=== PATIENT | male | born 1975 | race Caucasian/White ===

== ENCOUNTER 2019-12-18 16:56 | Observation (INO) ==
[2019-12-18 17:39] LABS: Basophils % 0.7 %; Eosinophils % 0.7 %; Hematocrit 36.5 % (37.5-50.1); Hemoglobin 12.7 g/dL (12.9-16.9); Immature Granulocytes % 0.2 % (0-4); Lymphocytes % 24.1 %; Mean Corpuscular HGB Conc 34.8 g/dL (31.6-35.5); Mean Corpuscular Hemoglobin 30.5 pg (28.0-33.3); Mean Corpuscular Volume 87.5 fL (83.0-100.0); Mean Platelet Volume 10.7 fL (9.4-12.4); Monocytes # 0.4 K/mcL (0.0-1.3); Monocytes % 9.8 %; Neutrophils # 2.6 K/mcL (1.6-8.9); Platelet Count 184 K/mcL (140-400); Red Blood Count 4.17 M/mcL (4.19-5.50); Red Cell Distribution Width 12.2 % (11.5-14.5); Segmented Neutrophils % 64.5 %; White Blood Count 4.1 K/mcL (4.3-11.1)
[2019-12-18] MEDS ORDERED: levoFLOXacin 750 MG/150 ML 750 MG/150 ML BAG IVPB ONE (17:44)
[2019-12-18] MEDS ORDERED: *HR* FentaNYL (PF) 100 MCG/2 ML VIAL IVP ONE (17:49)
[2019-12-18] MEDS ORDERED: Isovue-370 500 ML BOTTLE IVP ONE ×2 (17:57→18:33)
[2019-12-18 17:58] LABS: Large Platelets Present (Not Present); Reactive Lymphocytes Present (Not Present)
[2019-12-18 18:02] LABS: Alanine Aminotransferase 132 Units/L (7-52); Albumin 3.7 g/dL (3.5-5.7); Albumin/Globulin Ratio 1.2 (1.1-2.2); Alkaline Phosphatase 137 Units/L (34-104); Aspartate Amino Transferase 100 Units/L (13-39); BUN/Creatinine Ratio 14 (6-26); Blood Urea Nitrogen 14 mg/dL (6-20); Calcium 8.7 mg/dL (8.6-10.3); Carbon Dioxide 22 mEq/L (23-29); Chloride 99 mEq/L (98-107); Globulin 3.1 g/dL (2.4-3.5); Glucose 210 mg/dL (70-105); Lipase 38 Units/L (11-82); Osmolality,Calculated 279 (280-300); Potassium 3.8 mEq/L (3.5-5.1); Sodium 131 mEq/L (136-145); Total Protein 6.8 g/dL (6.4-8.9); Troponin I < 0.03 ng/mL (< 0.04); eGFR For African Americans > 60 (> 60); eGFR For Non-African Americans > 60 (> 60)
[2019-12-18] MEDS: 0.9 % Sodium Chloride 1,000 ML IVC SCH (18:07)
[2019-12-18 18:37] LABS: Magnesium 1.8 mg/dL (1.6-2.6); Phosphorous 2.5 mg/dL (2.7-4.5)
[2019-12-18] MEDS ORDERED: MetroNIDAZOLE 500 MG/100 ML 500 MG/100 ML BAG IVPB ONE (19:58)
[2019-12-18 21:04] LABS: Acetaminophen < 10 mcg/mL (10-20)
[2019-12-18 21:04] LABS: Bacteria,Urine Few per hpf (None-Few); Bilirubin,Urine Negative (Negative); Blood,Urine Negative (Negative); Calcium Oxalate Crystals,Urine Present; Clarity,Urine Clear (Clear); Color,Urine Yellow (Yellow); Glucose,Urine (UA) 50 mg/dL (Normal); Ketones,Urine Negative (Negative); Leukocyte Esterase,Urine Negative (Negative); Mucus,Urine Few per lpf (None-Few); Nitrite,Urine Negative (Negative); Protein,Urine Trace mg/dL (Neg-Trace); RBC,Urine 0-3 per hpf (0-3); Specific Gravity,Urine > 1.030 (1.010-1.025); Urobilinogen,Urine >=8.0 mg/dL (Normal); WBC,Urine 0-3 per hpf (0-3)
[2019-12-18] MEDS ORDERED: 0.9 % Sodium Chloride 500 ML IVC ONE (21:42)
[2019-12-18] MEDS ORDERED: 0.9 % Sodium Chloride 1,000 ML IVC ONE (21:42)
[2019-12-18 22:55] LABS: Hepatitis B Surface Antigen Nonreactive (Nonreactive)
[2019-12-18] MEDS ORDERED: Naloxone 0.4 MG/ML INJ IVP PRN (23:18)
[2019-12-18] MEDS ORDERED: Ondansetron 4 MG/2 ML VIAL IVP PRN (23:18)
[2019-12-18 23:23] LABS: Hepatitis C Virus Antibody Nonreactive (Nonreactive)
[2019-12-18 23:24] LABS: Hepatitis B Core IgM Nonreactive (Nonreactive)
[2019-12-18 23:25] LABS: Hepatitis A Antibody IgM Nonreactive (Nonreactive)
[2019-12-18] MEDS ORDERED: *HR* Dextrose 50 % in Water (Vial) 50 ML VIAL IVP PRN (23:46)
[2019-12-18] MEDS ORDERED: Dextrose Gel 15 GM/37.5 ML TUBE PO PRN ×2 (23:46)
[2019-12-18] MEDS ORDERED: D5% in Water 1,000 ML IVC PRN (23:46)
[2019-12-19] MEDS: Ringers Solution, Lactated 1,000 ML IVC SCH ×2 (00:38→12:20)
[2019-12-19] MEDS: *HR* HYDROmorphone (PF) 1 MG/ML SYRINGE IVP PRN ×5 (00:38→10:59)
[2019-12-19] MEDS: Insulin LISPRO 300 UNITS/3 ML VIAL SQ SCH ×5 (00:41→23:47)
[2019-12-19] MEDS ORDERED: Benzonatate 100 MG CAPSULE PO PRN (00:43)
[2019-12-19] MEDS: *HR* Heparin 5,000 UNIT/ML VIAL SQ SCH ×2 (04:55→18:20)
[2019-12-19 08:42] LABS: Hematocrit 31.7 % (37.5-50.1); Mean Corpuscular HGB Conc 34.7 g/dL (31.6-35.5); Mean Corpuscular Hemoglobin 30.6 pg (28.0-33.3); Mean Corpuscular Volume 88.1 fL (83.0-100.0); Mean Platelet Volume 10.6 fL (9.4-12.4); Monocytes # 0.4 K/mcL (0.0-1.3); Platelet Count 162 K/mcL (140-400); Red Cell Distribution Width 12.3 % (11.5-14.5); White Blood Count 3.5 K/mcL (4.3-11.1)
[2019-12-19] MEDS: MetroNIDAZOLE 500 MG/100 ML 500 MG/100 ML BAG IVPB SCH ×3 (09:00→23:48)
[2019-12-19 09:01] LABS: Albumin 3.1 g/dL (3.5-5.7); Albumin/Globulin Ratio 1.1 (1.1-2.2); Bilirubin,Direct 0.8 mg/dL (0.0-0.2); Bilirubin,Indirect 0.8 mg/dL (0.0-1.0); Bilirubin,Total 1.6 mg/dL (0.3-1.0); Globulin 2.7 g/dL (2.4-3.5); Total Protein 5.8 g/dL (6.4-8.9)
[2019-12-19 09:02] LABS: BUN/Creatinine Ratio 12 (6-26); Blood Urea Nitrogen 10 mg/dL (6-20); Carbon Dioxide 22 mEq/L (23-29); Chloride 104 mEq/L (98-107); Glucose 135 mg/dL (70-105); Magnesium 1.6 mg/dL (1.6-2.6); Osmolality,Calculated 279 (280-300); Potassium 3.6 mEq/L (3.5-5.1); Sodium 134 mEq/L (136-145); eGFR For African Americans > 60 (> 60); eGFR For Non-African Americans > 60 (> 60)
[2019-12-19 12:39] LABS: Basophils # 0.1 K/mcL (0.0-0.2); Lymphocytes # 0.9 K/mcL (0.6-4.6); Neutrophils # 2.1 K/mcL (1.6-8.9)
[2019-12-19 12:40] LABS: Platelet Estimate Normal (Normal); Reactive Lymphocytes Present (Not Present)
[2019-12-19 12:42] LABS: Toxic Granulation Present (Not Present)
[2019-12-19] MEDS ORDERED: Ketorolac 30 MG/ML VIAL IVP ONE (16:42)
[2019-12-19] MEDS ORDERED: Prochlorperazine 10 MG/2 ML VIAL IVP ONE (16:42)
[2019-12-19 16:49] LABS: % Iron Saturation 13 % (20-55); Iron 36 mcg/dL (65-175); Transferrin 197 mg/dL (203-362)
[2019-12-19] MEDS: 0.9 % Sodium Chloride 1,000 ML IVC SCH (19:43)
[2019-12-19] MEDS: Pregabalin 75 MG CAPSULE PO SCH (20:54)
[2019-12-20] MEDS: Insulin LISPRO 300 UNITS/3 ML VIAL SQ SCH (05:26)
[2019-12-20 07:40] VITALS: BP 120/82
[2019-12-20] MEDS: *HR* Heparin 5,000 UNIT/ML VIAL SQ SCH (08:33)
[2019-12-20] MEDS: Pregabalin 75 MG CAPSULE PO SCH (08:33)
[2019-12-20] MEDS ORDERED: lisinopriL 10 MG TABLET PO SCH (09:00)
[2019-12-20 09:48] LABS: Basophils % 0.6 %; Hemoglobin 11.2 g/dL (12.9-16.9); Immature Granulocytes % 0.3 % (0-4); Lymphocytes # 0.8 K/mcL (0.6-4.6); Mean Corpuscular HGB Conc 33.9 g/dL (31.6-35.5); Mean Corpuscular Hemoglobin 30.9 pg (28.0-33.3); Mean Corpuscular Volume 90.9 fL (83.0-100.0); Mean Platelet Volume 10.7 fL (9.4-12.4); Monocytes # 0.4 K/mcL (0.0-1.3); Monocytes % 12.2 %; Neutrophils # 1.9 K/mcL (1.6-8.9); Platelet Count 164 K/mcL (140-400); Red Blood Count 3.63 M/mcL (4.19-5.50); Red Cell Distribution Width 12.4 % (11.5-14.5); Segmented Neutrophils % 59.9 %; White Blood Count 3.1 K/mcL (4.3-11.1)
[2019-12-20 10:01] LABS: Alanine Aminotransferase 88 Units/L (7-52); Albumin 3.1 g/dL (3.5-5.7); Albumin/Globulin Ratio 1.1 (1.1-2.2); Alkaline Phosphatase 114 Units/L (34-104); Aspartate Amino Transferase 79 Units/L (13-39); BUN/Creatinine Ratio 13 (6-26); Bilirubin,Total 1.7 mg/dL (0.3-1.0); Blood Urea Nitrogen 11 mg/dL (6-20); Calcium 8.2 mg/dL (8.6-10.3); Carbon Dioxide 23 mEq/L (23-29); Chloride 107 mEq/L (98-107); Globulin 2.7 g/dL (2.4-3.5); Glucose 248 mg/dL (70-105); Osmolality,Calculated 294 (280-300); Potassium 3.8 mEq/L (3.5-5.1); Sodium 138 mEq/L (136-145); Total Protein 5.8 g/dL (6.4-8.9); eGFR For African Americans > 60 (> 60); eGFR For Non-African Americans > 60 (> 60)
[2019-12-20 10:08] LABS: Platelet Estimate Normal (Normal); Reactive Lymphocytes Present (Not Present)
[2019-12-21 10:13] LABS: AFP Tumor Marker Non-Pregnant 2 ng/mL (0-9)
[2019-12-22 10:37] LABS: F-Actin (sm muscle) Ab IgG 9 Units (0-19)
[2019-12-22 10:42] LABS: ANA IgG by ELISA NONE DETECTED (None Detected)
== END 2019-12-20 10:30 | disposition home or self-care (01) ==
LOC: EMEROOARM 16:56 → 3ANU 16:56
PROVIDERS: ADMIT Student in an Organized Health Care Education/Training Program; ATTEND Student in an Organized Health Care Education/Training Program

== ENCOUNTER 2020-03-06 12:23 | Inpatient (IN) ==
[2020-03-06] MEDS ORDERED: 0.9 % Sodium Chloride 1,000 ML IVC ONE (13:07)
[2020-03-06] MEDS ORDERED: Isovue-370 500 ML BOTTLE IVP ONE (13:25)
[2020-03-06 13:38] LABS: Basophils % 0.4 %; Eosinophils % 0.7 %; Hematocrit 39.6 % (37.5-50.1); Hemoglobin 13.1 g/dL (12.9-16.9); Immature Granulocytes % 1.1 % (0-4); Lymphocytes # 0.3 K/mcL (0.6-4.6); Lymphocytes % 11.2 %; Mean Corpuscular HGB Conc 33.1 g/dL (31.6-35.5); Mean Corpuscular Hemoglobin 27.8 pg (28.0-33.3); Mean Corpuscular Volume 84.1 fL (83.0-100.0); Monocytes # 0.1 K/mcL (0.0-1.3); Neutrophils # 2.3 K/mcL (1.6-8.9); Platelet Count 128 K/mcL (140-400); Red Blood Count 4.71 M/mcL (4.19-5.50); Red Cell Distribution Width 14.6 % (11.5-14.5); Segmented Neutrophils % 82.6 %; White Blood Count 2.8 K/mcL (4.3-11.1)
[2020-03-06 13:59] LABS: BUN/Creatinine Ratio 18 (6-26); Blood Urea Nitrogen 16 mg/dL (6-20); Calcium 8.6 mg/dL (8.6-10.3); Carbon Dioxide 22 mEq/L (23-29); Chloride 96 mEq/L (98-107); Glucose 119 mg/dL (70-105); Osmolality,Calculated 268 (280-300); Potassium 4.3 mEq/L (3.5-5.1); Sodium 128 mEq/L (136-145); Troponin I < 0.03 ng/mL (< 0.04); eGFR For African Americans > 60 (> 60); eGFR For Non-African Americans > 60 (> 60)
[2020-03-06] MEDS ORDERED: D5 IVPB STA (15:23)
[2020-03-06] MEDS ORDERED: AMPHOTERICIN B LIPID COMPLEX IVPB STA (15:23)
[2020-03-06] MEDS ORDERED: WATER IVPB STA (15:23)
[2020-03-06] MEDS ORDERED: D5 IVPB ONE ×2 (15:30→19:00)
[2020-03-06] MEDS ORDERED: WATER IVPB ONE ×2 (15:30→19:00)
[2020-03-06 15:38] LABS: Alanine Aminotransferase 32 Units/L (7-52); Albumin 3.2 g/dL (3.5-5.7); Albumin/Globulin Ratio 1.1 (1.1-2.2); Alkaline Phosphatase 91 Units/L (34-104); Aspartate Amino Transferase 35 Units/L (13-39); Bilirubin,Direct 0.2 mg/dL (0.0-0.2); Bilirubin,Indirect 1.2 mg/dL (0.0-1.0); Bilirubin,Total 1.4 mg/dL (0.3-1.0); Globulin 2.9 g/dL (2.4-3.5); Total Protein 6.1 g/dL (6.4-8.9)
[2020-03-06] MEDS ORDERED: WATER ONE (15:45)
[2020-03-06] MEDS ORDERED: D5 ONE (15:45)
[2020-03-06] MEDS ORDERED: Naloxone 0.4 MG/ML INJ IVP PRN (16:10)
[2020-03-06] MEDS ORDERED: Acetaminophen 325 MG TABLET PO PRN (16:10)
[2020-03-06] MEDS ORDERED: *HR* OxyCODONE Immed Rel 5 MG TABLET PO PRN (16:10)
[2020-03-06] MEDS ORDERED: D5% in Water 500 ML IVPB SCH (16:15)
[2020-03-06] MEDS ORDERED: D5% in Water 1,000 ML IVC PRN (16:16)
[2020-03-06] MEDS ORDERED: *HR* Dextrose 50 % in Water (Vial) 50 ML VIAL IVP PRN (16:16)
[2020-03-06] MEDS ORDERED: Dextrose Gel 15 GM/37.5 ML TUBE PO PRN ×2 (16:16)
[2020-03-06] MEDS ORDERED: Albuterol 2.5 MG/3 ML NEBULIZER IH PRN (16:20)
[2020-03-06 17:26] LABS: Estimated Average Glucose 214 mg/dl; Hemoglobin A1C 9.1 %
[2020-03-06 17:37] LABS: Hepatitis B Surface Antigen Nonreactive (Nonreactive)
[2020-03-06 18:06] LABS: Hepatitis B Core IgM Nonreactive (Nonreactive); Hepatitis C Virus Antibody Nonreactive (Nonreactive)
[2020-03-06 18:08] LABS: Hepatitis A Antibody IgM Nonreactive (Nonreactive)
[2020-03-06] MEDS: Ipratropium/Albuterol Neb 3 ML IH SCH ×3 (18:09→23:53)
[2020-03-06] MEDS ORDERED: Ondansetron 4 MG/2 ML VIAL IVP PRN (18:25)
[2020-03-06] MEDS: Insulin LISPRO 300 UNITS/3 ML VIAL SUBQ SCH (18:36)
[2020-03-06] MEDS: *HR* Heparin 5,000 UNIT/ML VIAL SQ SCH (18:52)
[2020-03-06] MEDS: Pantoprazole 40 MG VIAL IVP SCH (18:53)
[2020-03-06] MEDS ORDERED: Insulin LISPRO 300 UNITS/3 ML VIAL SUBQ SCH (21:00)
[2020-03-06] MEDS ORDERED: predniSONE 20 MG TABLET PO SCH (21:00)
[2020-03-06] MEDS: Levalbuterol Neb 1.25 MG/3 ML IH SCH (22:06)
[2020-03-06 22:13] LABS: Alanine Aminotransferase 25 Units/L (7-52); Albumin 2.7 g/dL (3.5-5.7); Albumin/Globulin Ratio 1.1 (1.1-2.2); Alkaline Phosphatase 70 Units/L (34-104); Aspartate Amino Transferase 32 Units/L (13-39); BUN/Creatinine Ratio 21 (6-26); Bilirubin,Total 1.5 mg/dL (0.3-1.0); Blood Urea Nitrogen 16 mg/dL (6-20); Carbon Dioxide 21 mEq/L (23-29); Chloride 97 mEq/L (98-107); Globulin 2.5 g/dL (2.4-3.5); Glucose 129 mg/dL (70-105); Osmolality,Calculated 267 (280-300); Potassium 3.9 mEq/L (3.5-5.1); Sodium 127 mEq/L (136-145); Total Protein 5.2 g/dL (6.4-8.9); eGFR For African Americans > 60 (> 60); eGFR For Non-African Americans > 60 (> 60)
[2020-03-06 22:18] LABS: ABG Base Excess -1 mEq/L (-2 to 3); ABG HCO3 22 mEq/L (21-27); ABG Oxygen Saturation 95 % (95-98); ABG PCO2 29 mmHg (35-45); ABG PH 7.48 pH Units (7.32-7.45); ABG PO2 67 mmHg (85-104); ABG TCO2 22 mEq/L (20-26)
[2020-03-06] MEDS: MethylPREDNISolone 40 MG/ML VIAL IVP SCH (22:20)
[2020-03-06] MEDS ORDERED: Albumin Human 5% 12.5 GM/250 ML IV.SOLN IVPB ONE (23:15)
[2020-03-06] MEDS: D5 IVPB SCH (23:59)
[2020-03-06] MEDS: SULFAMETHOXAZOLE IVPB SCH (23:59)
[2020-03-06] MEDS: WATER IVPB SCH (23:59)
[2020-03-06] MEDS: TRIMETH IVPB SCH (23:59)
[2020-03-07] MEDS: Levalbuterol Neb 1.25 MG/3 ML IH SCH ×3 (04:12→16:39)
[2020-03-07] MEDS: Ipratropium/Albuterol Neb 3 ML IH SCH ×2 (04:14→07:43)
[2020-03-07] MEDS: *HR* Heparin 5,000 UNIT/ML VIAL SQ SCH (05:32)
[2020-03-07] MEDS: MethylPREDNISolone 40 MG/ML VIAL IVP SCH ×2 (05:32→15:43)
[2020-03-07] MEDS: Pantoprazole 40 MG VIAL IVP SCH (05:32)
[2020-03-07] MEDS ORDERED: Amphotericin B Lipid Complex 400 MG in D5% in Water 250 ML IVPB SCH (09:00)
[2020-03-07] MEDS: Insulin LISPRO 300 UNITS/3 ML VIAL SUBQ SCH ×3 (09:32→15:44)
[2020-03-07] MEDS: TRIMETH IVPB SCH ×2 (09:33→16:07)
[2020-03-07] MEDS: SULFAMETHOXAZOLE IVPB SCH ×2 (09:33→16:07)
[2020-03-07] MEDS: D5 IVPB SCH ×2 (09:33→16:07)
[2020-03-07] MEDS: WATER IVPB SCH ×2 (09:33→16:07)
[2020-03-07] MEDS: Cefepime HCl 2,000 MG in Water for inj. (sterile) 20 ML IVP SCH ×2 (09:34→15:43)
[2020-03-07] MEDS ORDERED: Insulin DETEMIR 100 UNIT/ML X5UNITS SUBQ SCH ×2 (10:15→21:00)
[2020-03-07] MEDS ORDERED: Insulin LISPRO 300 UNITS/3 ML VIAL SUBQ SCH (10:16)
[2020-03-07 14:12] VITALS: BP 105/70
[2020-03-07] MEDS ORDERED: Ipratropium Neb 0.5 MG NEBULIZER IH SCH (16:00)
[2020-03-07] MEDS ORDERED: WATER IVPB SCH ×3 (16:45→19:58)
[2020-03-07] MEDS ORDERED: D5 IVPB SCH ×3 (16:45→19:58)
[2020-03-07] MEDS ORDERED: AMPHOTERICIN B LIPID COMPLEX IVPB SCH (17:00)
[2020-03-07 20:46] LABS: HIV-1&2 Antibody & p24 Ag Nonreactive (Nonreactive)
== END 2020-03-07 17:40 | disposition short-term general hospital (02) | DRG 867 ==
LOC: EMEROOARM 12:23 → 2NNU 16:35 → ICNU 23:50
PROVIDERS: ADMIT Student in an Organized Health Care Education/Training Program; ATTEND Student in an Organized Health Care Education/Training Program

== ENCOUNTER 2021-01-29 15:56 | Observation (INO) ==
[2021-01-29] MEDS: 0.9 % Sodium Chloride 1,000 ML IVC SCH ×2 (16:21→17:22)
[2021-01-29 16:41] LABS: Amphetamine Screen,Urine Negative ng/mL (Cutoff=1000); Barbiturate Screen,Urine Negative ng/mL (Cutoff=200); Benzodiazepines Screen,Urine Negative ng/mL (Cutoff=200); Cannabinoid Screen,Urine Negative ng/mL (Cutoff = 50); Cocaine Screen,Urine Negative ng/mL (Cutoff= 300); Opiate Screen,Urine Negative ng/mL (Cutoff=300); Phencyclidine Screen,Urine Negative ng/mL (Cutoff=25)
[2021-01-29 16:43] LABS: Basophils % 0.2 %; Bilirubin,Urine Negative (Negative); Blood,Urine Negative (Negative); Clarity,Urine Clear (Clear); Color,Urine Colorless (Yellow); Eosinophils # 0.1 K/mcL (0.0-0.6); Eosinophils % 0.6 %; Glucose,Urine (UA) >=1000 mg/dL (Normal); Hematocrit 48.8 % (37.5-50.1); Hemoglobin 17.7 g/dL (12.9-16.9); Immature Granulocytes % 0.8 % (0-4); Ketones,Urine Negative (Negative); Leukocyte Esterase,Urine Negative (Negative); Lymphocytes # 1.1 K/mcL (0.6-4.6); Lymphocytes % 5.8 %; Mean Corpuscular HGB Conc 36.3 g/dL (31.6-35.5); Mean Corpuscular Hemoglobin 30.7 pg (28.0-33.3); Mean Corpuscular Volume 84.7 fL (83.0-100.0); Mean Platelet Volume 10.4 fL (9.4-12.4); Monocytes # 1.4 K/mcL (0.0-1.3); Monocytes % 7.5 %; Neutrophils # 16.2 K/mcL (1.6-8.9); Nitrite,Urine Negative (Negative); Platelet Count 395 K/mcL (140-400); Protein,Urine Trace mg/dL (Neg-Trace); Red Blood Count 5.76 M/mcL (4.19-5.50); Red Cell Distribution Width 12.8 % (11.5-14.5); Segmented Neutrophils % 85.1 %; Specific Gravity,Urine > 1.030 (1.010-1.025); Squamous Epithelial Cell,Urine Few per hpf (None-Few); Uric Acid Crystals,Urine Present per hpf; Urobilinogen,Urine Normal (Normal); WBC,Urine 0-3 per hpf (0-3)
[2021-01-29 16:47] LABS: Alanine Aminotransferase 27 Units/L (7-52); Albumin 4.1 g/dL (3.5-5.7); Albumin/Globulin Ratio 1.5 (1.1-2.2); Alkaline Phosphatase 304 Units/L (34-104); Aspartate Amino Transferase 14 Units/L (13-39); BUN/Creatinine Ratio 18 (6-26); Bilirubin,Total 0.8 mg/dL (0.3-1.0); Blood Urea Nitrogen 26 mg/dL (6-20); Calcium 9.3 mg/dL (8.6-10.3); Carbon Dioxide 19 mEq/L (23-29); Chloride 99 mEq/L (98-107); Globulin 2.7 g/dL (2.4-3.5); Glucose 460 mg/dL (70-105); Osmolality,Calculated 293 (280-300); Potassium 4.6 mEq/L (3.5-5.1); Sodium 129 mEq/L (136-145); Total Protein 6.8 g/dL (6.4-8.9); eGFR For African Americans > 60 (> 60); eGFR For Non-African Americans 52 (> 60)
[2021-01-29] MEDS ORDERED: Insulin Human Regular 10 UNIT in 0.9 % Sodium Chloride 10 ML IV ONE (17:41)
[2021-01-29] MEDS ORDERED: Ondansetron 4 MG/2 ML VIAL IVP PRN (21:28)
[2021-01-29] MEDS ORDERED: Acetaminophen 325 MG TABLET PO PRN (21:28)
[2021-01-29] MEDS ORDERED: Naloxone 0.4 MG/ML INJ IVP PRN (21:28)
[2021-01-29] MEDS ORDERED: 0.9 % Sodium Chloride 1,000 ML IVC SCH (21:30)
[2021-01-29] MEDS ORDERED: Dextrose Gel 15 GM/37.5 ML TUBE PO PRN ×2 (21:36)
[2021-01-29] MEDS ORDERED: D5% in Water 1,000 ML IVC PRN (21:36)
[2021-01-29] MEDS ORDERED: *HR* Dextrose 50 % in Water (Syg) 50 ML SYRINGE IVP PRN (21:36)
[2021-01-29] MEDS ORDERED: Insulin DETEMIR 100 UNIT/ML X5UNITS SUBQ SCH (21:45)
[2021-01-30] MEDS: Insulin LISPRO 300 UNITS/3 ML VIAL SUBQ SCH ×3 (00:40→08:21)
[2021-01-30] MEDS ORDERED: Pregabalin 75 MG CAPSULE PO PRN (00:41)
[2021-01-30] MEDS ORDERED: lisinopriL 10 MG TABLET PO SCH (00:45)
[2021-01-30] MEDS ORDERED: Hydrocortisone Lotion 59 ML BOTTLE TP PRN (00:47)
[2021-01-30 02:46] LABS: Estimated Average Glucose 186 mg/dl; Hemoglobin A1C 8.1 %
[2021-01-30 03:16] LABS: Hematocrit 44.7 % (37.5-50.1); Mean Corpuscular HGB Conc 35.8 g/dL (31.6-35.5); Mean Corpuscular Hemoglobin 30.8 pg (28.0-33.3); Mean Corpuscular Volume 86.1 fL (83.0-100.0); Mean Platelet Volume 10.2 fL (9.4-12.4); Platelet Count 278 K/mcL (140-400); Red Blood Count 5.19 M/mcL (4.19-5.50); Red Cell Distribution Width 12.7 % (11.5-14.5); White Blood Count 14.7 K/mcL (4.3-11.1)
[2021-01-30 03:32] LABS: BUN/Creatinine Ratio 25 (6-26); Blood Urea Nitrogen 23 mg/dL (6-20); Calcium 8.5 mg/dL (8.6-10.3); Carbon Dioxide 21 mEq/L (23-29); Chloride 103 mEq/L (98-107); Glucose 272 mg/dL (70-105); Osmolality,Calculated 289 (280-300); Potassium 4.4 mEq/L (3.5-5.1); Sodium 133 mEq/L (136-145); eGFR For African Americans > 60 (> 60); eGFR For Non-African Americans > 60 (> 60)
[2021-01-30 07:19] VITALS: BP 142/80; PULSE 58; TEMP 97.7
[2021-01-30 07:57] VITALS: O2SAT 97
== END 2021-01-30 11:30 | disposition home or self-care (01) ==
LOC: 3BNU 15:56 → EMEROOARM 15:56 → SUATTDRO 20:48 → 3BNU 21:42
PROVIDERS: ADMIT Internal Medicine; ATTEND Registered Nurse